=== PATIENT | female | born 1995 | race Caucasian/White ===

== ENCOUNTER 2018-07-01 18:49 | Emergency (ER) | payer BC ==
--- NOTE | 2018-07-01 20:20 | ED Physician Documentation ---
PD HPI URI - Stated complaint Stated Complaint: FOB IN THROAT - Chief complaint Chief Complaint: Heent - History obtained from History obtained from: Patient - History of Present Illness Timing - onset: Today (Sore throat today and feeling like something is growing in her throat. No fevers or runny nose.) Review of Systems Constitutional: reports: Reviewed and negative Eyes: denies: Loss of vision, Decreased vision Ears: denies: Ear pain, Drainage/discharge Nose: denies: Rhinorrhea / runny nose Throat: reports: Sore throat Cardiac: denies: Palpitations PD PAST MEDICAL HISTORY - Past Medical History Past Medical History: No - Past Surgical History Past Surgical History: No - Present Medications Home Medications: Ambulatory Orders Medication Instructions Recorded Confirmed No Known Home Medications 07/01/18 07/01/18 - Allergies Allergies/Adverse Reactions: Allergies Allergy/AdvReac Type Severity Reaction Status Date / Time No Known Drug Allergies Allergy Verified 07/01/18 19:03 - Social History Does the pt smoke?: No Smoking Status: Never smoker Does the pt drink ETOH?: No Does the pt have substance abuse?: No - Immunizations Immunizations are current?: Yes - POLST Patient has POLST: No PD ED PE NORMAL - Vitals Vital signs reviewed: Yes - General General: Alert and oriented X 3, No acute distress - HEENT HEENT: Other (Red tonsillar pillars and uvula with a small ulcer on the uvula) - Neck Neck: Supple, no meningeal sign, No bony TTP, No adenopathy - Derm Derm: No rash - Neuro Neuro: Alert and oriented X 3, Normal speech Results - Vitals Vitals: Vital Signs - 24 hr 07/01/18 18:58 Temperature 37 C Heart Rate 71 Respiratory 15 Rate Blood Pressure 131/78 H O2 Saturation 100 Oxygen O2 Source Room air - Labs Labs: Laboratory Tests 07/01/18 19:14 Group A Strep Rapid Negative PD MEDICAL DECISION MAKING - ED course ED course: This is a young lady with viral pharyngitis. She felt like something was growing in her throat and she showed me a picture. She was able to snap a picture of her epiglottis which appeared normal. Departure - Departure Disposition: 01 Home, Self Care Clinical Impression: Viral pharyngitis Condition: Good Record reviewed to determine appropriate education?: Yes Instructions: ED Pharyngitis Viral Comments: Recheck with your doctor on Friday if not better, Motrin as needed for pain.
[2018-07-01 20:28] VITALS: BP 128/76
== END 2018-07-01 20:27 | disposition home or self-care (01) ==
LOC: ED 18:49
DX: J02.8 Acute pharyngitis due to other specified organisms (principal); J39.2 Other diseases of pharynx
CPT/HCPCS: 87070; 87430; 99282; 99283